=== PATIENT | female | born 1995 | race Caucasian/White ===

== ENCOUNTER 2021-03-09 09:48 | Emergency (ER) | payer MEDICAID, SELFPAY ==
[~2021-03-09] VITALS: Ht 170.2 cm; Wt 72.6 kg
[2021-03-09 09:48] VITALS: BP_SYST 115
[2021-03-09] MEDS ORDERED: HYDR50CA5 PO (10:36)
[2021-03-09 11:54] VITALS: BP_SYST 115
== END 2021-03-09 11:54 | disposition home or self-care (01) ==
LOC: SED 09:48
DX: F41.9 Anxiety disorder, unspecified (principal); Z20.822 Contact with and (suspected) exposure to COVID-19
CPT/HCPCS: 36415; 93005; 99284

== ENCOUNTER 2021-04-16 15:35 | Emergency (ER) | payer MEDICAID, SELFPAY ==
[~2021-04-16] VITALS: Ht 170.2 cm; Wt 70.8 kg
[2021-04-16 15:35] VITALS: BP_SYST 115
[~2021-04-16 15:35] MED LIST: HYDR50CA5 PO
[2021-04-16] MEDS ORDERED: KETOROLAC TROMETHAMINE 30 MG VIAL IVP ONE (16:15)
[2021-04-16] MEDS ORDERED: METOCLOPRAMIDE HCL 10 MG/2 ML VIAL IVP ONE (16:15)
[2021-04-16] MEDS ORDERED: DEXAMETHASONE SOD PHOSPHATE 10 MG/ML VIAL IVP ONE (16:15)
[2021-04-16] MEDS ORDERED: DIPHENHYDRAMINE INJ 50 MG/ML VIAL IVP ONE (16:15)
[2021-04-16 19:21] VITALS: BP_SYST 115
== END 2021-04-16 19:24 | disposition home or self-care (01) ==
LOC: SED 15:35
DX: R51.9 Headache, unspecified (principal); F41.9 Anxiety disorder, unspecified; Z79.899 Other long term (current) drug therapy
CPT/HCPCS: 96374; 96375; 99284; J1100; J1200; J1885; J2765

== ENCOUNTER 2021-06-18 17:57 | Emergency (ER) | payer MEDICAID ==
[~2021-06-18] VITALS: Ht 170.2 cm; Wt 72.6 kg
--- NOTE | 2021-06-18 18:01 | NUR ---
Patient to ER bed 2 to gown for evaluation. Side rails up. Report given to MAIKOL.
[2021-06-18 18:05] VITALS: BP_SYST 136
--- NOTE | 2021-06-18 18:10 | NUR ---
DR ANNE IN TO ASSESS
[2021-06-18] MEDS ORDERED: DIPHENHYDRAMINE INJ 50 MG/ML VIAL IVP ONE (18:30)
[2021-06-18] MEDS ORDERED: METOCLOPRAMIDE HCL 10 MG/2 ML VIAL IVP ONE (18:30)
--- NOTE | 2021-06-18 18:30 | NUR ---
REFUSED IV, REFUSED M,EDICATIONS. ,UP WALKING NO DYSPNEA
--- NOTE | 2021-06-18 18:36 | NUR ---
TO CT WITH TECH, NO DISTRESS
--- NOTE | 2021-06-18 19:02 | NUR ---
ASSUMED CARE OF PT FROM ASHLI MAGAÑA
--- NOTE | 2021-06-18 19:04 | NUR ---
lab at bedside
[2021-06-18 19:28] LABS: BASOPHILS # (AUTO) 0.1 K/uL (0.0-0.2); BASOPHILS % (AUTO) 0.9 % (0.0-2.0); EOSINOPHILS # (AUTO) 0.1 K/uL (0.0-0.4); EOSINOPHILS % (AUTO) 1.7 % (0.0-4.0); HEMATOCRIT 40.4 % (36-48); HEMOGLOBIN 13.9 g/dL (12.0-16.0); LYMPHOCYTES # (AUTO) 2.8 K/uL (1.0-5.5); LYMPHOCYTES % (AUTO) 38.6 % (20.5-51.5); MEAN CORPUSCULAR HEMOGLOBIN 29 pg (27-31); MEAN CORPUSCULAR HGB CONC 35 % (32-36); MEAN CORPUSCULAR VOLUME 84 fL (79.0-98.0); MONOCYTES # (AUTO) 0.4 K/uL (0.0-1.0); MONOCYTES % (AUTO) 5.6 % (1.7-9.3); NEUTROPHILS # (AUTO) 3.9 K/uL (1.8-7.7); NEUTROPHILS % (AUTO) 53.2 % (40.0-70.0); PLATELET COUNT (AUTO) 241 K/uL (130-430); RED BLOOD CELL COUNT(AUTO) 4.81 MIL/uL (4.2-6.2); RED CELL DISTRIBUTION WIDTH 12.5 % (9.0-15.0); WHITE BLOOD COUNT (AUTO) 7.3 K/uL (4.8-10.8)
[2021-06-18] MEDS ORDERED: IBUPROFEN 800 MG TABLET PO ONE ×2 (19:30)
[2021-06-18 19:35] LABS: ANION GAP 8 (5-15); CALCIUM 9.1 mg/dL (8.4-11.0); CHLORIDE 104 mmol/L (98-107); CREATININE 0.74 mg/dL (0.55-1.30); GLUCOSE 88 mg/dL (70-99); POTASSIUM 3.3 mmol/L (3.5-5.1); SODIUM SERUM 141 mmol/L (136-145); UREA NITROGEN, BLOOD 13 mg/dL (8-21)
[2021-06-18 19:36] LABS: GFR AFRICAN AMERICAN 121 mL/min (>90)
[2021-06-18 19:42] LABS: C-REACTIVE PROTEIN QUANT < 0.2 mg/dL (0-0.5)
[2021-06-18 19:52] LABS: ALANINE AMINOTRANSFERASE 46 U/L (12-78); ALBUMIN 4.2 g/dL (3.4-4.8); ASPARTATE AMINOTRANSFERASE 20 U/L (10-37); TOTAL BILIRUBIN 0.2 mg/dL (0.0-1.0)
[2021-06-18] MEDS ORDERED: IBUP-1969 PO (20:06)
[2021-06-18] MEDS ORDERED: MECL-108 PO (20:06)
--- NOTE | 2021-06-18 20:14 | NUR ---
Patient given written and verbal discharge instructions and verbalizes understanding. ER MD discussed with patient the results and treatment provided. Patient in stable condition. ID arm band removed. Rx of IBUPROFEN, MECLIZINE given. Patient educated on pain management and to follow up with PMD. Pain Scale 3/10. Opportunity for questions provided and answered. Medication side effect fact sheet provided.
[2021-06-18 20:16] VITALS: BP_SYST 125
[2021-06-18 21:14] LABS: ERYTHROCYTE SEDIMENTATION RATE 2 MM/HR (0-20)
== END 2021-06-18 20:14 | disposition home or self-care (01) ==
LOC: SED 17:57
DX: R51.9 Headache, unspecified (principal); F41.9 Anxiety disorder, unspecified; Z88.1 Allergy status to other antibiotic agents; Z79.899 Other long term (current) drug therapy
CPT/HCPCS: 36415; 70450-TC; 76376; 80053; 81025; 85025; 85610-TC; 85651-TC; 85730-TC; 86140; 99284